=== PATIENT | male | born 1940 | race Asian ===

== ENCOUNTER 2019-12-04 14:45 | Emergency (ER) | payer OTHER, SELFPAY ==
[~2019-12-04] VITALS: Ht 167.6 cm; Wt 65.8 kg
[2019-12-04 15:00] VITALS: BP_SYST 139
[2019-12-04 15:40] VITALS: BP_SYST 139
== END 2019-12-04 15:40 | disposition home or self-care (01) ==
LOC: EEVIPCON 14:45 → SED 14:45
DX: R50.9 Fever, unspecified (principal); M79.18 Myalgia, other site; E11.9 Type 2 diabetes mellitus without complications; I10 Essential (primary) hypertension; Z03.818 Encounter for observation for suspected exposure to other biological agents ruled out
CPT/HCPCS: 99283; U0002